=== PATIENT | male | born 1945 | race Caucasian/White ===

== ENCOUNTER → 2017-07-13 11:10 | Emergency (ER) | payer OTHER ==
[2017-07-13 11:36] VITALS: BP 152/93
--- NOTE | 2017-07-13 12:30 | RAD ---
HISTORY: Right knee pain, injury COMPARISONS: None VIEWS: 4, Frontal, lateral, axial, and oblique views of the right knee FINDINGS: BONE DENSITY: Normal. BONES: There is no displaced fracture. JOINTS: There is mild tricompartmental osteoarthritis. There is no suprapatellar joint effusion or lipohemarthrosis. ALIGNMENT: There is no dislocation. SOFT TISSUES: Unremarkable. OTHER FINDINGS: None. IMPRESSION: NO ACUTE OSSEOUS INJURY. IF SYMPTOMS PERSIST, RECOMMEND REPEAT IMAGING.
--- NOTE | 2017-07-13 17:42 | UC ---
Benton Luke Angela, scribed for Nahun Hart MD on 07/13/17 at 1154 . Lower Extremity/Ankle HPI - HPI Summary HPI Summary: This pt is a 71 y/o male presenting to [facility] c/o right knee pain since this morning. Pt reports he was walking his dog this morning when he felt his right knee give out and he fell on his knees. Since then pt reports right knee pain. He rates his pain 8 out of 10 in severity. Pt notes he is able to bear weight but is painful. - History of Current Complaint Chief Complaint: UCLowerExtremity Stated Complaint: KNEE INJURY Time Seen by Provider: 07/13/17 11:28 Hx Obtained From: Patient Onset/Duration: Lasting Hours, Still Present Severity Currently: Severe Pain Intensity: 8 Pain Scale Used: 0-10 Numeric Aggravating Factor(s): Ambulation Alleviating Factor(s): Rest Able to Bear Weight: Yes - Allergies/Home Medications Allergies/Adverse Reactions: Allergies Allergy/AdvReac Type Severity Reaction Status Date / Time No Known Allergies Allergy Verified 07/13/17 11:30 Home Medications: Home Medications Ibuprofen 400 mg PO Q8HR PRN 07/13/17 [History Confirmed 07/13/17] PMH/Surg Hx/FS Hx/Imm Hx - Additional Past Medical History Additional PMH: PMHx: glaucoma Other Endocrine History: DENIES: diabetes Other GI/ History: BPH - Surgical History Surgical History: None - Family History Known Family History: Positive: Other - FHx: arthritis Negative: Cardiac Disease, Hypertension - Social History Alcohol Use: Occasionally Alcohol Amount: 2 DRINKS/DAY Substance Use Type: None Smoking Status (MU): Never Smoked Tobacco Review of Systems Constitutional: Negative Skin: Negative Eyes: Negative ENT: Negative Respiratory: Negative Cardiovascular: Negative Gastrointestinal: Negative Genitourinary: Negative Motor: Negative Neurovascular: Negative Musculoskeletal: Other: - right knee pain Neurological: Negative Psychological: Negative All Other Systems Reviewed And Are Negative: Yes Physical Exam - Summary Physical Exam Summary: VITAL SIGNS: Reviewed. GENERAL: Patient is a well-developed and nourished male who is lying comfortable in the stretcher. Patient is not in any acute respiratory distress. HEAD AND FACE: Normocephalic EYES: PERRLA, EOMI x 2. EARS: Hearing grossly intact. MOUTH: Oropharynx within normal limits. NECK: Supple, trachea is midline, no adenopathy, no JVD, no carotid bruit. CHEST: Symmetric, no tenderness at palpation LUNGS: Clear to auscultation bilaterally. No wheezing or crackles. CVS: Regular rate and rhythm, S1 and S2 present, no murmurs or gallops appreciated. ABDOMEN: Soft, non-tender. Bowel sounds are normal. No abdominal abnormal pulsations. EXTREMITIES: Full ROM in all major joints, no cyanosis or clubbing. There is swelling on the right knee but there is full ROM. Neurovascular intact. NEURO: Alert and oriented x 3. No acute neurological deficits. Speech is normal and follows commands. SKIN: Dry and warm Triage Information Reviewed: Yes Vital Signs: Initial Vital Signs Temp 97.6 F 07/13/17 11:23 Pulse 65 07/13/17 11:23 Resp 18 07/13/17 11:23 BP 152/93 07/13/17 11:23 Pulse Ox 97 07/13/17 11:23 Vital Signs Reviewed: Yes Diagnostics - Radiology Right knee XR Xray Interpretation: No Acute Changes - IMPRESSION: No acute osseous injury. If symptoms persist, recommend repeat imaging. Dr. Hart has reviewed this radiology report. Radiology Interpretation Completed By: Radiologist Re-Evaluation - Re-Evaluation First Eval Re-Evaluation Time: 12:36 Comment: I reviewed the XR results with the pt. Pt will be discharged home. Lower Extremity Course/Dx - Course Course Of Treatment: This pt is a 71 y/o male presenting to [facility] c/o right knee pain since this morning. Pt reports he was walking his dog this morning when he felt his right knee give out and he fell on his knees. Since then pt reports right knee pain. He rates his pain 8 out of 10 in severity. Pt notes he is able to bear weight but is painful. Right knee XR is negative for an acute fracture or dislocation. Pt will be discharged home with a knee immobilizer and a cane. I discussed the XR results with the patient and was advised that he may benefit from a follow up from an orthopedist. Pt was instructed to return to the urgent care or go to ER immediately if any of the symptoms return or worsens. Plan of care was discussed with the patient and pt understands and agrees. All questions were answered to patient satisfaction. There were no further complaints or concerns. Pt will be discharged to home with follow up from PCP. Pt is hemodynamically stable, alert and oriented x3. The patient was found to have increased blood pressure in UC. The patient will follow up with PCP for better control of BP. - Differential Dx/Diagnosis Provider Diagnoses: Knee pain Discharge - Sign-Out/Discharge Documenting (check all that apply): Discharge - discharge to home - Discharge Plan Condition: Stable Disposition: HOME Patient Education Materials: Knee Pain (ED), Arthralgia (ED) Referrals: Shaunna Díaz MD [Primary Care Provider] - Additional Instructions: FOLLOW UP WITH YOUR PRIMARY CARE PROVIDER WITHIN ONE WEEK FOR HIGH BLOOD PRESSURE NOTED TODAY. RETURN TO URGENT CARE OR THE ED FOR ANY WORSENING OR NEW SYMPTOMS. The documentation as recorded by the Benton wilson Angela accurately reflects the service I personally performed and the decisions made by , Nahun Hart MD.
== END | disposition home or self-care (01) ==
LOC: UCEAST 11:10
DX: M25.561 Pain in right knee (principal)
CPT/HCPCS: 99213; G0463

== ENCOUNTER → 2017-07-23 13:09 | Day surgery (SDC) | payer OTHER ==
--- NOTE | 2017-07-21 15:59 | HP ---
HISTORY AND PHYSICAL: DATE OF SURGERY: 07/23/17 DATE OF OFFICE VISIT: 07/20/17 SURGEON: Allison Luna MD* (dictated by PETE Muller). PROCEDURE: Right open quad tendon repair. CHIEF COMPLAINT: Right knee pain. HISTORY OF PRESENT ILLNESS: Mr. Collier is a 71-year-old gentleman with complaints of right knee pain. He injured his knee on 07/13/17. He states he was walking his dog when he stepped over a tree and twisted his right leg. He heard himself the pop and was unable to weightbear fully on his right leg with severe pain in his right thigh. He is unable to do a straight leg raise. He has significant swelling of his right lower extremity and ecchymosis along his right thigh. PAST MEDICAL HISTORY: BPH. PAST SURGICAL HISTORY: Bowel surgery as an and tonsillectomy. CURRENT MEDICATIONS: 1. Ibuprofen. 2. Flomax. 3. Finasteride. 4. Latanoprost eye drops. ALLERGIES: AMOXICILLIN. FAMILY HISTORY: Prostate cancer. SOCIAL HISTORY: He is a 71-year-old gentleman, lives with his spouse. 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 He does not smoke or use drugs. He uses occasional alcohol. REVIEW OF SYSTEMS: A complete 14-point review of systems was reviewed with the patient. It was all negative or noncontributory. PHYSICAL EXAMINATION GENERAL: He is well developed, well nourished, in no acute distress. He is alert and oriented x3. Pleasant mood and appropriate affect. VITAL SIGNS: He stands 5 feet 8 inches tall, weighs 185 pounds. His blood pressure is 126/76, his heart rate 65. HEENT: Normocephalic, atraumatic. NECK: Supple. No palpable lymph nodes. PULMONARY: The lungs are clear to auscultation bilaterally. CARDIO: Regular rate and rhythm. Strong S1, S2. ABDOMEN: Soft, nontender, nondistended. NEUROLOGICAL: Cranial nerves II through XII are intact. MUSCULOSKELETAL: Right lower extremity, the skin is intact. There are no open wounds or abrasions. He has a large effusion of the knee joint. There is some pitting edema of the entire thigh down to the ankle, significant ecchymosis along the entire thigh. He is unable to do a straight leg raise. Distally, his strengths are 5/5. 2+ dorsalis pedis pulses and intact sensation. ASSESSMENT AND PLAN: Mr. Collier is a 71-year-old gentleman with a right quad tendon tear. He has elected to proceed with surgery and Dr. Luna has scheduled him for a right open quad tendon repair for 07/23/17. Dr. Luna discussed the risks and benefits of the surgery at today's visit and all of his questions were answered. He will follow up with Dr. Luna in 10 to 14 days after the surgery. PETE MULLER [id number]/[facility] #: [id number] ZEN
[~2017-07-23 13:09] MED LIST: Buffered Lidocaine 0.9% SYRIN* 5 ML/SYR SYRINGE INTRADERM ONE; Buffered Lidocaine 0.9% SYRIN* 5 ML/SYR SYRINGE ONE; Bupivacaine 0.5% PF 10 ML VIAL INJ ONE; Clindamycin 900 MG IVPREMIX(* 900 MG/50 ML SDV IV ONE; Dexamethasone IV* 4 MG/ML 1 ML (4 MG) IV SLOW PU ONE; Dexamethasone IV* 4 MG/ML 1 ML (4 MG) ONE; Famotidine TAB* 20 MG ONE; Famotidine TAB* 20 MG PO ONE; Ketorolac INJ* 30 MG/ML 1 ML VIAL IV PRN; Ketorolac INJ* 30 MG/ML 1 ML VIAL ONE; Lidocaine 2% PF * 5 ML VIAL ONE; Midazolam* 1 MG/ML 2 ML VIAL (2 MG) ONE; Naloxone* 0.4 MG/ML 1 ML VIAL IV PRN; Ondansetron INJ* 2 MG/ML VIAL ONE; PROCHLORPERAZINE INJ 5 MG/ML 2 ML VIAL IV PRN; Propofol* 10 MG/ML 20 ML BTL IV PUSH ONE; fentaNYL* 50 MCG/ML 2 ML VIAL (100 MCG VIAL) ONE; oxyCODONE/Acetamin 5/325 MG* TAB ONE; oxyCODONE/Acetamin 5/325 MG* TAB PO PRN
[2017-07-23] MEDS: fentaNYL* 50 MCG/ML 2 ML VIAL (100 MCG VIAL) IV PRN ×3 (17:22→17:50)
[2017-07-23 18:57] VITALS: BP 139/78
--- NOTE | 2017-07-24 11:17 | OP ---
OPERATIVE REPORT: DATE OF OPERATION: 07/23/17 - [facility] DATE OF : 49 SURGEON: Allison Luna MD SUPPLY AND DISTRIBUTION MANAGER: PETE Andres Ms. did help throughout the procedure with preparation of the leg, wound retraction, manipulation of the knee, and wound closure. ANESTHESIOLOGIST: Dr. Mijares. ANESTHESIA: General. PRE-OP DIAGNOSIS: Right quadriceps tendon tear distally. POST-OP DIAGNOSIS: Right quadriceps tendon tear distally, medial and lateral retinacular tearing. OPERATIVE PROCEDURE: Open right quadriceps tendon repair with retinacular repair. TOURNIQUET TIME: 32 minutes. ESTIMATED BLOOD LOSS: Less than 50 cc. COMPLICATIONS: None. SPECIMEN: None. BRIEF HISTORY/INDICATION: Mr. Collier is a 71-year-old gentleman who injured his right knee on 07/13/17. He was walking his dog when he was twisted and felt a pop in the right leg. He came to see me on 07/20/17 and I diagnosed him on physical exam with a quadriceps tendon tear. We ordered a stat MRI and set him up for surgery. We did discuss the risks and benefits of both nonoperative and operative treatment. He elected to proceed with operative treatment since he is so active and was having severe pain and weakness. Informed consent was obtained from the patient. He understood the risks of surgery included, but were not limited to bleeding, infection, damage to nearby structures, continued pain, need for further surgery, retear of the quad, extensor lag, stroke, heart attack, blood clot, and . He wished to proceed. INTRAOPERATIVE FINDINGS: Intraoperatively, the patient was noted to have a full thickness distal quadriceps tear. There was no obvious fracture of the patella. There was significant disruption of both the medial and lateral retinaculum around the knee joint. There was a significant hematoma and effusion of the knee joint. DESCRIPTION OF PROCEDURE: Mr. Collier was identified in the preanesthesia unit. His right lower extremity was marked as the correct operative side. Informed consent was signed and placed in the chart. The patient was taken to the operating room and placed under general anesthesia. A tourniquet was placed on the right thigh. The right lower extremity was prepped and draped in the usual sterile fashion. Preop time-out was made to correctly identify the patient, side and site. Appropriate perioperative antibiotics were given within 1 hour of incision. Tourniquet was inflated and total tourniquet time for this procedure was 32 minutes. A midline incision was made with a 10 blade and carried down to the extensor mechanism. Immediately encountered was a large hematoma effusion. This was suctioned out. The quadriceps tendon tear and retinacular tears both medially and laterally were immediately visualized. The knee was irrigated with sterile saline. The ends of the tendon were cleaned of any debris and hematoma. The proximal patellar surface was cleared off any fibrous tissue with a Rongeur. Three #5 Ethibond were run in a longitudinal fashion up and down the quadriceps tendon using a lula stitch technique. The free ends were left distally. Next, a 2.8 drill bit was used to drill 3 tunnels longitudinally in the patella. This was placed in the mid portion of the patella. Perez suture- passer was used to thread the sutures through the tunnel distally. Using the appropriate amount of tension, the sutures were tied carefully. It was noted that this repair was strong. The knee could be bent to 40 degrees without any gapping. Additional #5 Ethibond was used to reinforce this repair as well as to repair the medial and lateral retinaculum. #1 Vicryl were used to further enhance this repair. The knee was copiously irrigated with sterile saline. The rest of the incision was closed in a layered fashion using 0 and 2-0 Vicryl. Tourniquet was turned down at 32 minutes. Skin was closed using running 3-0 Monocryl and Dermabond. Sterile Adaptic, 4x4s and Webril were used to cover the incision. Dann wrap and cold pack were placed over this. The patient's anesthesia was reversed without difficulty. He was taken to the PACU in stable condition. Intended weightbearing will be weightbearing as tolerated. Intended DVT prophylaxis will be aspirin. He will follow up in the office in 1 week's time for a wound check. [id number]/[facility] #: [id number] ZEN
--- NOTE | 2017-07-24 12:45 | RAD ---
INDICATION: Quadriceps tendon repair right knee. COMPARISON: Comparison is made with a prior MRI of the right knee from July 21, 2017. TECHNIQUE: 4.3 seconds of intermittent fluoroscopic guidance were provided and 2 spot films of the right knee were obtained in the operating room. FINDINGS: 2 portable lateral spot films of the right knee were obtained in the operating room. IMPRESSION: INTRAOPERATIVE CONTROL FILMS. CPT II Codes: G9500
== END | disposition home or self-care (01) ==
LOC: OR 13:09
PROVIDERS: ATTEND Orthopaedic Surgery Adult Reconstructive Orthopaedic Surgery
DX: S76.111A Strain of right quadriceps muscle, fascia and tendon, initial encounter (principal); X50.0XXA Overexertion from strenuous movement or load, initial encounter; Y93.89 Activity, other specified; Y92.89 Other specified places as the place of occurrence of the external cause
CPT/HCPCS: 76000; A9270-GY; J1100; J1885; J2250; J2405; J2704; J3010

== ENCOUNTER 2017-11-09 10:29 | Emergency (ER) | payer OTHER ==
[2017-11-09 10:39] VITALS: BP 137/86
[2017-11-09] MEDS ORDERED: Lidocaine 1% MPF* 2 ML VIAL INJ ONE (10:53)
[2017-11-09] MEDS ORDERED: Tetan/Diph/Pertus SYR(Tdap)* 0.5 ML SYR(BOOSTRIX) use SYR IM ONE (10:53)
--- NOTE | 2017-11-09 10:54 | UC ---
Bite Injury/Animal HPI - HPI Summary HPI Summary: This is scribe Ely Pina documenting for attending Dr. Herbert MD. 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 This morning, the patients was walking their Beagle, and a stick got caught in its collar, and the pt was tried to remove the stick, agitating the dog, who then bit him multiple times. The patient is unsure when his last tetanus shot was, allergic to penicillin. Pt is R-handed. The dogs shots are UTD, and is at home with the doors closed. They have had trouble with the dog before, but he has never bitten anyone outside of the family. I, Dr. Godinez, personally performed the services described in this documentation as scribed in my presence and it is both accurate and complete. - History of Current Complaint Chief Complaint: UCBiteInjury Stated Complaint: DOG BITE Time Seen by Provider: 11/09/17 10:42 Hx Obtained From: Patient Severity Currently: Moderate Severity Initially: Moderate Pain Intensity: 5 Pain Scale Used: 0-10 Numeric Onset/Duration: Sudden Onset, Lasting Hours - since this morning, Still Present Type of Bite: Pet - dog - beagle Has Animal Been Immunized?: Yes Character: Puncture, Abrasion/Laceration Aggravating Factor(s): Exertion Alleviating Factor(s): Rest Associated Signs And Symptoms: Positive: Erythema, Swelling, Limited ROM Animal Available for Observation: Yes Animal Control Notified: No - Allergies/Home Medications Allergies/Adverse Reactions: Allergies Allergy/AdvReac Type Severity Reaction Status Date / Time Penicillins Allergy Hives Verified 11/09/17 10:39 PMH/Surg Hx/FS Hx/Imm Hx Previously Healthy: No Endocrine History: Diabetes - negative Cardiovascular History: Hypertension - Surgical History Surgical History: Yes Surgery Procedure, Year, and Place: TONSILLECTOMY. DIVERTICULITIS AN torn tendon surgery in 07/15 - Family History Known Family History: Positive: Other - FHx: arthritis Negative: Cardiac Disease, Hypertension - Social History Occupation: Employed Full-time Lives: With Family Alcohol Use: Daily Alcohol Amount: 2 DRINKS/DAY Substance Use Type: None Smoking Status (MU): Never Smoked Tobacco Review of Systems Constitutional: Negative - fever Skin: Bruising, Other - lacerations all over R and L hands and forearms, active bleeding All Other Systems Reviewed And Are Negative: Yes Physical Exam - Summary Physical Exam Summary: Appearance: Well appearing, no pain distress Skin: 2cm skin tear to mid-dorsum of L hand. Small puncture near dorsal web space of L 4th and 5th fingers, bleeding is controlled. J-shaped laceration to thenar eminence to the R hand that is 5 cm in length. There is a puncture wound with skin tear at the proximal nail fold of R thumb and 1 cm puncture wound laceration to the R dorsal radial wrist. Several puncture wounds on the left forearm (3), skin tear that is 1.5cm in length on L forearm. R forearm has 6 puncture wounds. Head/face: normal Eyes: EOMI, ISIAH ENT: normal Neck: supple, non-tender Respiratory: CTA, breath sounds present Cardiovascular: RRR, pulses symmetrical Abdomen: non-tender, soft Bowel Sounds: present Musculoskeletal: normal, strength/ROM intact Neuro: normal, sensory motor intact, A&Ox3 Triage Information Reviewed: Yes Vital Signs: Initial Vital Signs Temp 98 F 11/09/17 10:37 Pulse 96 11/09/17 10:37 Resp 16 11/09/17 10:37 BP 137/86 11/09/17 10:37 Pulse Ox 100 11/09/17 10:37 Vital Signs Reviewed: Yes Procedures - Procedure Summary Procedure Summary: L forearm punctures irrigated and dressed with 0 form and gauze, puncture on R thumb dressed with 0 steriform, subungual hematoma trephinated with electrocautery, dressed the nail fold laceration with two steri-strips. L forearm puncture wounds dressed with 0 form and gauze. 2.5 cc 1% lidocaine into L hand, 2.5 cc 1% lidocaine into L forearm, 7 cc 1% lidocaine into R hand. Each wound was cleaned with betadine. L forearm cleaned with betadine, 2.5cm after repair, two simple interrupted sutures, 4-0 prolene. 2cm skin tear on L dorsal hand cleaned with betadine and repaired with two simple interrupted sutures, 4-0 prolene. J-shaped laceration on R palm cleaned with betadine and repaired with two simple interrupted 4-0 vicryl sutures, subcutaneously, as well as two simple interrupted 4-0 prolene, and four horizontal mattress 4-0 prolene. Sterile technique used. - Laceration/Wound Repair 1 Location: upper extremity - L forearm Length, Depth and Shape: Puncture, superficial Betadine Prep?: Yes Laceration/Wound Explored: clean Closure: SteriStrips Debridement: minimal Sterile Dressing Applied?: Yes 2 Location: upper extremity - R thumb puncture Length, Depth and Shape: Puncture, superficial, and subungual hematoma, see summary for details on dressing. Betadine Prep?: Yes Closure: SteriStrips Debridement: minimal Sterile Dressing Applied?: Yes 3 Location: upper extremity - L forearm Description: Linear Anesthesia: 1.0% - 2.5cc, Lido Length, Depth and Shape: 2.5cm after repair Betadine Prep?: Yes Laceration/Wound Explored: clean Closure: Single Layer - simple interrupted sutures Debridement: minimal Suture Type: Prolene - 4-0 Number of Sutures: 2 Layer Closure?: Yes Sterile Dressing Applied?: Yes 5 Location: upper extremity - R palm Anesthesia: 1.0% - 7cc, Lido Length, Depth and Shape: 5cm J-shaped skin tear Betadine Prep?: Yes Laceration/Wound Explored: clean Closure: Multilayer - two simple interrupted 4-0 vicryl subcutaneous sutures, two simple interrupted 4-0 prolene sutures, four horizontal mattress 4-0 prolene sutures. Debridement: minimal Suture Type: Prolene - 4-0 Number of Sutures: 8 Layer Closure?: Yes Sterile Dressing Applied?: Yes 4 Location: upper extremity - L dorsal hand Anesthesia: 1.0% - 2.5 cc, Lido Length, Depth and Shape: 2cm skin tear Betadine Prep?: Yes Laceration/Wound Explored: clean Closure: Single Layer - simple interrupted Debridement: minimal Suture Type: Prolene - 4-0 Number of Sutures: 2 Layer Closure?: Yes Sterile Dressing Applied?: Yes Bite Injury Course/Dx - Course Course Of Treatment: Patient presents with multiple wounds to both forearms and hands after being bitten by his own dog. Dog is up-to-date on vaccines. Patient is penicillin allergic and so he was prophylactically with Levaquin, clindamycin per CDC recommendation. Multiple puncture wounds were irrigated with saline copiously. The lacerations were also some [place] cleaned. I then cleaned each of the lacerations with Betadine prior to irrigating once more prior to closure. The wounds were then closed loosely, dressed with Xeroform and Kerlix wrap and secured with Coban. I have asked the patient to return to see me in 2 days at [facility] or return here for wound check. He was also a subungual hematoma which was trephinated by battery-powered electrocautery. Patient was updated in his tetanus. Sutures should be taken out in 10 days, follow up with primary care provider or go to local urgent care for removal. BP noted and advised to follow up with PCP. - Differential Dx/Diagnosis Provider Diagnoses: 1. Multiple dog bites to bilateral hands/forearms. 2. HTN. 3. Subungual hematoma right thumb Discharge - Sign-Out/Discharge Documenting (check all that apply): Patient Departure - Discharge Plan Condition: Improved Disposition: HOME Prescriptions: Clindamycin Cap(NF) [Clindamycin Cap 300 mg Cap(NF)] 300 mg PO TID #20 cap Levofloxacin TAB* [Levaquin TAB*] 750 mg PO DAILY #6 tab Patient Education Materials: Animal Bite (ED), Care For Your Stitches (ED), Laceration (ED), Acute Wound Care (ED) Referrals: Shaunna Díaz MD [Primary Care Provider] - Additional Instructions: Please follow up with your primary care provider or at [facility] in two days for a wound re-check. Sutures to be removed in approximately 10 days' time. Your blood pressure was elevated during todays visit; please follow up with your primary care provider within a week for further evaluation. Take a probiotic such as lactobacillus or Eat activitia yogurt while taking antibiotics. - Billing Disposition and Condition Condition: IMPROVED Disposition: Home
[2017-11-09] MEDS ORDERED: Levofloxacin TAB* 250 MG PO ONE (10:56)
[2017-11-09] MEDS ORDERED: Clindamycin CAP* 150 MG PO ONE (10:56)
[2017-11-09] MEDS ORDERED: Lidocaine 1%* 5 ML VIAL ONE (11:23)
== END 2017-11-09 12:32 | disposition home or self-care (01) ==
LOC: UCEAST 10:29
DX: S51.832A Puncture wound without foreign body of left forearm, initial encounter (principal); S61.031A Puncture wound without foreign body of right thumb without damage to nail, initial encounter; S51.822A Laceration with foreign body of left forearm, initial encounter; S61.411A Laceration without foreign body of right hand, initial encounter; S61.412A Laceration without foreign body of left hand, initial encounter; S60.011A Contusion of right thumb without damage to nail, initial encounter; W54.0XXA Bitten by dog, initial encounter; Y93.K1 Activity, walking an animal; Y92.9 Unspecified place or not applicable; Z23 Encounter for immunization; I10 Essential (primary) hypertension; Z88.0 Allergy status to penicillin
CPT/HCPCS: 12002; 12042; 90715; 96372; 99212; A9270-GY; G0463

== ENCOUNTER 2018-09-03 18:43 | Observation (INO) | payer OTHER ==
--- NOTE | 2018-09-03 20:08 | ED ---
Lower Extremity - HPI Summary HPI Summary: Patient is a 72 y/o male with hx of BPH and glaucoma with right leg swelling x 1 week. Denies calf pain, redness, numbness and tingling. Denies recent travel, recent immobilization, personal and family history of DVT and PE. He is not currently on blood thinners. States he saw his doctor this morning and had a positive D-dimer test, who sent him here for DVT U/S and further workup. He also notes a tick bite about 1 week ago to the right proximal calf. He removed the tick within 24 hours and received prophylactic doxycycline dose. Denies fevers, arthralgias, headache, flu-like symptoms, rashes. Denies tobacco use. - History of Current Complaint Chief Complaint: EDExtremityLower Stated Complaint: RT LEG SWOLLEN PER PT Time Seen by Provider: 09/03/18 20:00 Hx Obtained From: Patient Onset/Duration: Days Severity Initially: Mild Severity Currently: Moderate Pain Intensity: 2 Pain Scale Used: 0-10 Numeric Timing: Intermittent Character Of Pain: Aching Associated Signs And Symptoms: Positive: Swelling. Negative: Redness, Bruising , Fever, Weakness, Abdominal Pain Aggravating Factor(s): Nothing Alleviating Factor(s): Nothing Able to Bear Weight: Yes - Risk Factors Gout Risk Factors: Age Over 40, Male, Obesity DVT Risk Factors: Negative Septic Arthritis Risk Factor: Negative - Allergies/Home Medications Allergies/Adverse Reactions: Allergies Allergy/AdvReac Type Severity Reaction Status Date / Time Penicillins Allergy Hives Verified 09/03/18 18:54 PMH/Surg Hx/FS Hx/Imm Hx Previously Healthy: No Endocrine/Hematology History: Denies: Hx Diabetes Cardiovascular History: Reports: Other Cardiovascular Problems/Disorders - slight irregularity in heart beat, pt not sure Denies: Hx Hypertension, Hx Pacemaker/ICD Respiratory History: Reports: Hx Sleep Apnea - states he has breathing irregulalrities while sleeping, soft then hard Denies: Other Respiratory Problems/Disorders GI History: Reports: Hx Ulcer - duodenal ulcer while in college, Other GI Disorders - heart burn on occasion History: Reports: Other Problems/Disorders - Enlarged prostate, on medications Denies: Hx Kidney Stones - uric acid crystals in his bladder, Hx Renal Disease Musculoskeletal History: Reports: Hx Arthritis - Right knee, Other Musculoskeletal History - Right knee pain effusion, right quadriceps Sensory History: Reports: Hx Contacts or Glasses - Glasses, Hx Glaucoma - pre glaucoma primarily in right eye, eye drops at night Denies: Hx Hearing Aid Opthamlomology History: Reports: Hx Contacts or Glasses - Glasses, Hx Glaucoma - pre glaucoma primarily in right eye, eye drops at night Neurological History: Denies: Other Neuro Impairments/Disorders Psychiatric History: Denies: Hx Panic Disorder - Surgical History Surgical History: Yes Surgery Procedure, Year, and Place: TONSILLECTOMY. DIVERTICULITIS AN INFANT torn tendon surgery in 07/15 Hx Anesthesia Reactions: No Infectious Disease History: Yes Infectious Disease History: Reports: History Other Infectious Disease - Lyme disease. Denies: Traveled Outside the [place] in Last 30 Days - Family History Known Family History: Positive: Other - FHx: arthritis Negative: Cardiac Disease, Hypertension, Blood Disorder - Social History Alcohol Use: Daily Alcohol Amount: 2 DRINKS/DAY Substance Use Type: Reports: None Smoking Status (MU): Never Smoked Tobacco Review of Systems Negative: Fever, Chills Negative: Chest Pain Negative: Shortness Of Breath, Cough Negative: Abdominal Pain, Nausea Positive: no symptoms reported Positive: Edema - Right lower leg. Negative: Rash Negative: Headache, Numbness All Other Systems Reviewed And Are Negative: Yes Physical Exam Triage Information Reviewed: Yes Vital Signs On Initial Exam: Initial Vitals Temp Pulse Resp BP Pulse Ox 99.0 F 79 16 122/80 95 09/03/18 18:51 09/03/18 18:51 09/03/18 18:51 09/03/18 18:51 09/03/18 18:51 Vital Signs Reviewed: Yes Appearance: Positive: Well-Appearing, No Pain Distress Skin: Positive: Warm, Skin Color Reflects Adequate Perfusion, Dry Head/Face: Positive: Normal Head/Face Inspection Eyes: Positive: Normal, EOMI, Conjunctiva Clear ENT: Positive: Normal ENT inspection Respiratory/Lung Sounds: Positive: Clear to Auscultation, Breath Sounds Present. Negative: Rales, Rhonchi, Wheezes Cardiovascular: Positive: RRR, Pulses are Symmetrical in both Upper and Lower Extremities. Negative: Murmur, Rub Abdomen Description: Positive: Nontender, Soft. Negative: Distended Musculoskeletal: Positive: Strength/ROM Intact, Edema Right - Right leg non- pitting edema and warmth. No erythema. Scabbed area consistent with previous tick bite to proximal calf. No calf tenderness. No palpable cords. Neurological: Positive: Normal, Sensory/Motor Intact, Alert, Oriented to Person Place, Time Psychiatric: Positive: Normal Diagnostics - Vital Signs Vital Signs Temp Pulse Resp BP Pulse Ox 09/03/18 20:00 74 19 96 09/03/18 19:55 76 134/80 97 09/03/18 18:51 99.0 F 79 16 122/80 95 - Laboratory Result Diagrams: 09/03/18 21:28 09/03/18 21:28 Lab Statement: Any lab studies that have been ordered have been reviewed, and results considered in the medical decision making process. - CT Chest CTA CT Interpretation Completed By: Radiologist Summary of CT Findings: Bilateral pulmonary embolism, greater on right than left - Ultrasound Right ext DVT Ultrasound Interpretation Completed By: Radiologist Summary of Ultrasound Findings: Positive for right leg DVT. Partial occlusion of right common femoral vein, full occlusion of right femoral and popliteal veins. - EKG 2108 Cardiac Rate: NL - 72 EKG Rhythm: Sinus Rhythm ST Segment: Normal Ectopy: None Re-Evaluation - Re-Evaluation First Re-eval Change: Unchanged Comment: Rhythm strip shows PVCs, CTA ordered Lower Extremity Course/Dx - Course Course Of Treatment: 72 y/o male with 1 week right lower leg swelling, positive D-dimer earlier today sent to ED by AGRONOMIST for DVT U/S of right leg. U/S shows occluded left femoral vein with clot partially occluding common femoral. During pt's stay, patient developed PVCs. Lovenox started. CTA shows bilateral pulmonary embolism. Discussed admission with Dr. Babcock, hospitalist, who accepts admission. Assessment/Plan: Patient with heavy clot burden and so a CT of the chest was done despite his normal vital signs. I did notice some PVCs which help trigger the workup. CT of course was positive for PE and he had arty been anticoagulated with therapeutic Lovenox. Admit to hospitalist service. - Diagnoses Differential Diagnosis/HQI/PQRI: Positive: Cellulitis, DVT, Phlebitis, Other - pulmonary embolism Provider Diagnoses: Right leg DVT, Pulmonary embolism - Physician Notifications Discussed Care Of Patient With: domingo Paul Time Discussed With Above Provider: 20:15 Instructed by Provider To: Admit As Inpatient Admit/Transition Orders Completed By ED Provider: No - Critical Care Time Critical Care Time: 30-74 min - Critical care time is exclusive of separately billable procedures Discharge - Sign-Out/Discharge Documenting (check all that apply): Patient Departure Patient Received Moderate/Deep Sedation with Procedure: No - Discharge Plan Condition: Improved Disposition: ADMITTED TO [facility] - Billing Disposition and Condition Condition: IMPROVED Disposition: Admitted to [facility] - Attestation Statements Document Initiated by Scribe: Yes Documenting Scribe: JACKELINE Daniels Provider For Whom Yoni is Documenting (Include Credential): Dr. Godinez Scribe Attestation: Janet Luke PA-S, scribed for Dr. Godinez on 09/04/18 at 0113. Scribe Documentation Reviewed: Yes Provider Attestation: The documentation as recorded by the Janet wilson PA-S accurately reflects the service I personally performed and the decisions made by Dr. Herbert santiago Status of Scribe Document: Viewed
[2018-09-03] MEDS ORDERED: Enoxaparin(*) 80 MG/0.8 ML SYR SUBCUT ONE (21:05)
[2018-09-03 21:34] LABS: ABS Basophils 0.1 10^3/ul (0-0.2); ABS Eosinophils 0.3 10^3/ul (0-0.6); ABS Lymphocytes 2.5 10^3/ul (1.0-4.8); ABS Monocytes 0.8 10^3/ul (0-0.8); ABS Neutrophils 4.4 10^3/ul (1.5-7.7); Hematocrit 43 % (42-52); Hemoglobin 14.5 g/dL (14.0-18.0); Lymphocyte % 30.8 %; Mean Corpuscular HGB Conc 34 g/dL (31-36); Mean Corpuscular Hemoglobin 31 pg (27-31); Mean Corpuscular Volume 93 fL (80-94); Mean Platelet Volume 8.9 fL (7.4-10.4); Platelet Count 197 10^3/uL (150-450); Red Blood Count 4.61 10^6 /uL (4.18-5.48); Red Cell Distribution Width 13 % (10-15); White Blood Count 8.1 10^3/uL (3.5-10.8)
[2018-09-03 21:43] LABS: Activated Partial Thrombo Time 35.4 seconds (26.0-38.0); INR 1.05 (0.82-1.09)
[2018-09-03 21:50] LABS: BUN/Creatinine Ratio 20.9 (8-20); Calcium 9.2 mg/dL (8.6-10.3); EGFR African American 99.7 (>60); EGFR Non-African American 82.4 (>60); Potassium 4.7 mmol/L (3.5-5.0)
[2018-09-03] MEDS ORDERED: Iohexol 350* (CONTRAST) 500 ML MDV IV ONE (21:57)
[2018-09-04] MEDS ORDERED: Acetaminophen TAB* 325 MG PO PRN (00:01)
[2018-09-04] MEDS ORDERED: Ondansetron INJ* 2 MG/ML VIAL IV PRN (00:01)
--- NOTE | 2018-09-04 01:57 | HP ---
ADMISSION HISTORY AND PHYSICAL: DATE OF ADMISSION: 09/04/18 PRIMARY CARE PROVIDER: Shaunna Díaz MD HEALTHCARE PROXY: His . CODE STATUS: Full. SOURCE OF INFORMATION: History obtained from interview with the patient, review of past medical records. RELIABILITY: Good. CHIEF COMPLAINT: Swollen right leg. HISTORY OF PRESENT ILLNESS: A 72-year-old man who approximately 1 week prior obtained a tick bite to his right leg. He noticed that his leg began to swell on Thursday, approximately 6 days prior to presentation. It did not increase in size, but stayed approximately the same size, was not associated with pain. Although he does have chronic pain in that leg, there was no change in that level of chronic pain, and because of the increased swelling without change, he was advised to seek care in the emergency room where he had a Doppler that indicated a DVT in his right leg. Of note, the patient had a surgery in June 2017 on his right leg for quadriceps tendon repair and has since had some limited mobility utilizing his right leg. He ambulates using a cane on that side when ambulating outside, however, does ambulate independently when inside. He has denied any shortness of breath or cough, chest pain, lightheadedness, nausea, vomiting. He denies any recent travel or trauma to that leg. Again, he indicates a tick bite a week prior, although unknown significance at this time. Not having notable erythema or inflammation secondary to that insect bite. PAST MEDICAL HISTORY: Includes: 1. YODIT, does utilize CPAP. 2. BPH. 3. History of quadriceps tendon repair in June 2017. 4. Tonsillectomy as a child. 5. Bowel surgery as a child, which he believes was for diverticulitis, but it is unclear. MEDICATIONS: Home medications include: 1. Finasteride. 2. Tamsulosin. 3. Xalatan 1 drop both eyes in the evening. ALLERGIES: To PENICILLINS. FAMILY HISTORY: For prostate cancer. No history of blood clots or venous thromboembolism. SOCIAL HISTORY: 1. No tobacco. 2. Alcohol, has 2 alcoholic drinks per night. 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 REVIEW OF SYSTEMS: As per HPI. PHYSICAL EXAMINATION GENERAL: Well-appearing gentleman, lying flat in bed, interactive, pleasant, no apparent distress. VITAL SIGNS: In the emergency room 133/70, heart rate 75, respiratory rate is between 14 and 29, 95% on room air, T-max is 99 degrees Fahrenheit. HEENT: Oropharynx is clear. He has moist mucous membranes. Sclerae are anicteric. LUNGS: Clear to auscultation. HEART: He has regular rate and rhythm. No murmurs, rubs, or gallops. ABDOMEN: Soft, nontender, nondistended. EXTREMITIES: Warm and well perfused. He does have some swelling in his proximal right leg around his quadriceps. No notable erythema or inflammation. Did not appreciate pitting edema. NEUROLOGIC: He is alert and oriented x3. His cranial nerves II through XII are intact. He has no apparent anxiety, agitation, or depression. DIAGNOSTIC STUDIES/LAB DATA: Labs reviewed are largely benign. Platelets 197. INR is 1.0. BUN is 19, creatinine 0.9. Data reviewed. Venous Doppler study, impression: Nonocclusive thrombus noted in the right common femoral vein, which is noncompressible, but does demonstrate phasic blood flow. Occlusive thrombus is present in the right femoral and popliteal veins extending into the right tibial vein until the posterior tibial vein. CTA chest and thorax, impression: Central filling defect in the right pulmonary artery extending into the right upper and right lower lobe branches of the pulmonary artery and also the central filling defect in the lingula or segmental branch of the left upper lobe pulmonary artery and subsegmental branches of the left lower lobe pulmonary artery consistent with acute bilateral pulmonary embolism, which is greater on the right than on the left, no visible embolism. EKG is normal sinus rhythm, left axis, normal R wave progression, no Q waves, no ST or T wave changes. ASSESSMENT AND PLAN: This is a 72-year-old man presenting with right upper leg swelling, found with notable clot burden and bilateral pulmonary emboli. 1. Venous thromboembolism - right lower extremity as well as pulmonary embolism. While in the emergency room, did have PVCs on telemetry, concerning in the setting of newly diagnosed pulmonary embolism. Discussed with emergency room provider, we agreed to observe as observation in the hospital overnight. We will monitor on telemetry. He received enoxaparin in the emergency room. We will initiate Xarelto tomorrow b.i.d. at the time of next Lovenox dosing which is 9 a.m. Chose this medication in order to transition to once daily dosing after 21 days, although he is free to transition to any other medication at his followup with his primary care provider. We did discuss options and he does favor NOAC over Coumadin at this time. Additionally, we will deliver lactated Ringer's at 100 cc per hour overnight. 2. Obstructive sleep apnea. Hospital CPAP. 3. Benign prostatic hypertrophy. Home medications. 4. DVT prophylaxis. Lovenox tonight, transitioning to rivaroxaban tomorrow morning. [id number]/[facility] #: [id number] ZEN
[2018-09-04] MEDS: Lactated Ringers 1000 ML Bag* 1,000 ML IV SCH ×2 (02:14→11:37)
[2018-09-04] MEDS ORDERED: Rivaroxaban TAB(*) 15 MG PO SCH (09:00)
[2018-09-04] MEDS ORDERED: Finasteride TAB* 5 MG PO SCH (09:00)
[2018-09-04 11:22] VITALS: BP 144/86
--- NOTE | 2018-09-04 16:41 | DS ---
CC: Dr. Shaunna Díaz DISCHARGE SUMMARY: DATE OF ADMISSION: DATE OF DISCHARGE: 09/04/18 HISTORY OF PRESENT ILLNESS/HOSPITAL COURSE: This 72-year-old man presented with swelling of the righ t leg. The history is detailed in the admission note. I note he removed a tick from his right leg a bout a week before. He has many ticks in his yard. I think this is really not relevant to his clini mukesh situation and there was no evidence of any disease transmission related to the tick bite. The si te itself was not abnormal. The patient had a Doppler in the emergency room showing DVT in the right leg. CT scan showed right p ulmonary emboli. He was started on heparin and then transitioned to rivaroxaban. He did quite well in the hospital. He was able to ambulate normally. He was not short of breath. He had no chest katharina n. He had no leg pain. He still had swelling of his right leg, possibly subsided a little. I note that he had quadriceps tendon repair of his right leg in June 2017 and has limited mobility. He does say he tends to sit a lot. There were no other precipitating factors such as a long trip or other acute injury. FINAL DIAGNOSES: 1. Pulmonary embolism and deep vein thrombosis of right leg. 2. Obstructive sleep apnea. 3. Benign prostatic hypertrophy. DISCHARGE MEDICATIONS: 1. Rivaroxaban 15 mg b.i.d. for 41 doses more, then 20 mg daily. 2. Tamsulosin 0.4 mg daily. 3. Latanoprost 0.005% one drop both eyes h.s. 4. Finasteride 5 mg every morning. DISPOSITION ON DISCHARGE: Discharged home. CONDITION ON DISCHARGE: Improved. [id number]/[facility] #: [id number]
[2018-09-04] MEDS ORDERED: Tamsulosin CAP* 0.4 MG PO SCH (18:00)
[2018-09-04] MEDS ORDERED: Latanoprost 0.005%* 2.5 ml BTL BOTH EYES SCH (18:00)
== END 2018-09-04 16:28 | disposition home or self-care (01) ==
LOC: ED 18:43 → MEDTELE 09-04 00:01
PROVIDERS: ADMIT Internal Medicine; ATTEND Internal Medicine
DX: I26.99 Other pulmonary embolism without acute cor pulmonale (principal); I82.4Z1 Acute embolism and thrombosis of unspecified deep veins of right distal lower extremity; G47.33 Obstructive sleep apnea (adult) (pediatric); N40.0 Benign prostatic hyperplasia without lower urinary tract symptoms; Z88.0 Allergy status to penicillin
CPT/HCPCS: 36415; 71275; 80048; 85025; 85610; 85730; 93005; 96372; 96374; 96376; 99285; A9270-GY; G0378; J1650; Q9967

== ENCOUNTER 2018-11-13 16:04 | Emergency (ER) | payer OTHER ==
[2018-11-13 16:20] VITALS: BP 114/76
--- NOTE | 2018-11-13 16:35 | UC ---
Skin Complaint HPI - HPI Summary HPI Summary: Multiple bites at approximately 2 pm today when he was push mowing his lawn and disrupted a wasp nest, with multiple stings to both lower and upper extremities , and on the anterior neck. Took chlorpheneramine, but has increased swelling of the right lower leg, and progressive urticaria over the trunk and proximal arms. No oral swelling, cough, dyspnea or chest pain. - History of Current Complaint Chief Complaint: UCSkin Time Seen by Provider: 11/13/18 16:24 Stated Complaint: BEE STINGS Hx Obtained From: Patient, Family/Building Attendant Onset/Duration: Sudden Onset, Lasting Hours Skin Exposure Onset/Duration: Hours Ago - 2.5 Onset Severity: Moderate Current Severity: Moderate Pain Intensity: 3 Location: Diffuse Aggravating Factor(s): Touch Alleviating Factor(s): Antihistamines Associated Signs & Symptoms: Negative: Nausea, Vomiting, Weakness, Cough, Wheezing Related History: Insect Bite/Sting - Allergy/Home Medications Allergies/Adverse Reactions: Allergies Allergy/AdvReac Type Severity Reaction Status Date / Time Penicillins Allergy Hives Verified 11/13/18 16:20 Home Medications: Home Medications Acetaminophen [Tylenol] 1 tab PO ONCE PRN 11/13/18 [History Confirmed 11/13/18] Calcium Carbonate [Tums] 11/13/18 [History] Chlorpheniramine Maleate TAB* [Chlortrimeton TAB*] 4 mg PO ONCE PRN 11/13/18 [ History Confirmed 11/13/18] Cholecalciferol TAB* [Vitamin D TAB*] 1,000 unit PO DAILY 11/13/18 [History Confirmed 11/13/18] Ibuprofen TAB* [Advil TAB*] 2 tab PO ONCE PRN 11/13/18 [History Confirmed ] PMH/Surg Hx/FS Hx/Imm Hx Cardiovascular History: Deep Vein Thrombosis - developed August 2018 GI/ History: Other - BPH - Surgical History Surgical History: Yes Surgery Procedure, Year, and Place: TONSILLECTOMY. DIVERTICULITIS AN . right leg torn tendon surgery june 2017 - Family History Known Family History: Positive: Other - FHx: arthritis Negative: Cardiac Disease, Hypertension, Blood Disorder - Social History Occupation: Retired Lives: With Family Alcohol Use: Daily Alcohol Amount: 2 DRINKS/DAY Substance Use Type: None Smoking Status (MU): Never Smoked Tobacco Review of Systems All Other Systems Reviewed And Are Negative: Yes Constitutional: Positive: Negative. Negative: Fatigue Skin: Positive: Rash, Other - has rx for doxycycline at home which he uses as Lyme prphylaxis. ENT: Negative: Sore Throat, Sinus Congestion Respiratory: Negative: Shortness Of Breath, Cough Cardiovascular: Negative: Palpitations, Chest Pain Gastrointestinal: Positive: Other - took an antacid for mild reflux symptoms earlier today Genitourinary: Positive: Other - BPH controlled. Motor: Positive: Other - DVT right leg, with persistent swelling post DVT. Neurovascular: Positive: Negative Musculoskeletal: Positive: Arthralgia - has persistent Neurological: Positive: Negative Psychological: Positive: Negative Is Patient Immunocompromised?: No Physical Exam Triage Information Reviewed: Yes Appearance: Well-Nourished, Pain Distress - mild, Other: - looks frail and older than age. Vital Signs: Initial Vital Signs Temp 97.8 F 11/13/18 16:16 Pulse 84 11/13/18 16:16 Resp 16 11/13/18 16:16 BP 114/76 11/13/18 16:16 Pulse Ox 98 11/13/18 16:16 Eyes: Positive: Other: - left ectropion ENT: Positive: Pharynx normal, Uvula midline - without swelling, no tongue swelling. Neck: Positive: Supple, Nontender, No Lymphadenopathy Respiratory: Positive: Lungs clear, Normal breath sounds Cardiovascular: Positive: RRR, No Murmur Abdomen Description: Positive: Nontender, Soft Musculoskeletal: Positive: Edema @ - right foreleg with tense edema, leg is warm and red, but not tender to palpation Skin Exam: Other - urticaria over trunk, proximal forearm, numerous bites on hands with erythema of the dorsum of the hands. Re-Evaluation - Re-Evaluation First Eval Re-Evaluation Time: 17:15 - decreased erythema, urticaria persist Change: Improved Course/Dx - Course Course Of Treatment: Given IM benadryl and solumedrol as initial treatment. - Differential Diagnoses - Skin Complaint Differential Diagnoses: Local Allergic Reaction - Diagnoses Provider Diagnosis: Allergic reaction to bee sting Discharge - Sign-Out/Discharge Documenting (check all that apply): Patient Departure All imaging exams completed and their final reports reviewed: No Studies - Discharge Plan Condition: Stable Disposition: HOME Prescriptions: DOXYcycline CAP(*) [DOXYcycline 100MG CAP(*)] 100 mg PO BID #10 cap predniSONE [Prednisone 20 MG TAB] 20 mg PO BID #10 tablet Patient Education Materials: General Allergic Reaction (ED) Referrals: Shaunna Díaz MD [Primary Care Provider] - Additional Instructions: You have been given solumedrol and benadryl to decrease the reaction to the stings. You can take banaryl 25 to 50 mg before bed tonight, and as needed every 4 to 6 hours tomorrow to decrease itch and hives. Ice and cool soaks might help with swelling as well. You have a prescription for doxycycline to use should you be suspicious of a secondary infection (cellulitis)--with increasing pain and redness at any of the sites of the bites. Please follow up if you are not seeing consistent improvement in the hives and swelling over the next 48 hours, and please go to the emergency room should you have any difficulty breathing. - Billing Disposition and Condition Condition: STABLE Disposition: Home
[2018-11-13] MEDS ORDERED: methylPREDNISolone 125 MG* 2 ML VIAL IM ONE (16:40)
[2018-11-13] MEDS ORDERED: diPHENhydraMINE IV* 50 MG/ML 1 ml VIAL (BENADRYL) IM ONE (16:41)
== END 2018-11-13 17:29 | disposition home or self-care (01) ==
LOC: UCEAST 16:04
DX: T63.441A Toxic effect of venom of bees, accidental (unintentional), initial encounter (principal); Y92.017 Garden or yard in single-family (private) house as the place of occurrence of the external cause; Z86.718 Personal history of other venous thrombosis and embolism; Z88.0 Allergy status to penicillin
CPT/HCPCS: 96372; 99212; G0463; J1200; J2930

== ENCOUNTER 2019-03-27 09:44 | Emergency (ER) | payer OTHER ==
--- NOTE | 2019-03-27 10:09 | ED ---
Back Pain - HPI Summary HPI Summary: 73-year-old male with significant past medical history of blood clots who is currently on xarelto for this reason presents to the emergency department today complaining of pain after falling down 3 stairs 2 days ago. Patient states he has 7/10 back pain which is made worse with ambulation however he is able to ambulate. Patient also has a 3 cm abrasion noted to the scalp which was sustained during a fall. Patient denies changes in vision, headache, slurred speech, numbness or tingling, neck pain, hip pain. Patient denies any neurological deficits and is alert and oriented 3. Patient otherwise feels well and denies fever, chest, abdominal pain, shortness of breath, pain with urination, rash. Patient endorses recent alcohol use but denies recent recreational drug use. Family history and social history noncontributory. Patient denies loss of consciousness or amnesia. - History of Current Complaint Chief Complaint: EDHeadInjury Stated Complaint: FALL HEAD INJURY Time Seen by Provider: 03/27/19 09:54 Hx Obtained From: Patient Onset/Duration: Sudden Onset, Lasting Days Onset/Duration: Started Days Ago Timing: Constant Back Pain Location: Is Discrete @ Severity Initially: Moderate Severity Currently: Moderate Pain Intensity: 7 Pain Scale Used: 0-10 Numeric Character: Aching Aggravating Symptom(s): Movement, Lifting, Bending Alleviating Symptom(s): Rest, Position Associated Signs And Symptoms: Negative: Swelling, Redness, Bruising, Fever, Weakness, Flank Pain, Pain with Weight Bearing - Allergies/Home Medications Allergies/Adverse Reactions: Allergies Allergy/AdvReac Type Severity Reaction Status Date / Time Penicillins Allergy Hives Verified 11/13/18 16:20 PMH/Surg Hx/FS Hx/Imm Hx Endocrine/Hematology History: Denies: Hx Diabetes, Hx Thyroid Disease Cardiovascular History: Reports: Other Cardiovascular Problems/Disorders - slight irregularity in heart beat, pt not sure Denies: Hx Hypertension, Hx Pacemaker/ICD Respiratory History: Reports: Hx Sleep Apnea - states he has breathing irregulalrities while sleeping, soft then hard Denies: Hx Asthma, Hx Chronic Obstructive Pulmonary Disease (COPD), Other Respiratory Problems/Disorders GI History: Reports: Hx Ulcer - duodenal ulcer while in college, Other GI Disorders - heart burn on occasion History: Reports: Other Problems/Disorders - Enlarged prostate, on medications Denies: Hx Kidney Stones - uric acid crystals in his bladder, Hx Renal Disease Musculoskeletal History: Reports: Hx Arthritis - Right knee, Other Musculoskeletal History - Right knee pain effusion, right quadriceps Sensory History: Reports: Hx Contacts or Glasses - Glasses, 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 DIVERTICULITIS AN INFANT. right leg torn tendon surgery june 2017 Hx Anesthesia Reactions: No Infectious Disease History: No Infectious Disease History: Reports: History Other Infectious Disease - Lyme disease. Denies: Hx Hepatitis, Hx Human Immunodeficiency Virus (HIV), Traveled Outside the in Last 30 Days - Family History Known Family History: Positive: Other - FHx: arthritis Negative: Cardiac Disease, Hypertension, Blood Disorder - Social History Alcohol Use: Daily Alcohol Amount: 2 DRINKS/DAY Substance Use Type: Reports: None Smoking Status (MU): Never Smoked Tobacco Review of Systems Constitutional: Negative Eyes: Negative ENT: Negative Cardiovascular: Negative Respiratory: Negative Gastrointestinal: Negative Genitourinary: Negative Positive: Arthralgia, Myalgia, Decreased ROM Positive: Other - scalp laceration Neurological: Negative Psychological: Normal All Other Systems Reviewed And Are Negative: Yes Physical Exam - Summary Physical Exam Summary: Patient responded appropriately in conversation and is alert and oriented 3. Neurological exam within normal limits. PERRLA. There is a laceration noted to the scalp. Patient complains of lumbar back pain which is made worse with palpation of the sacrum and paraspinal muscles of the lumbar region. Patient has full range of motion and is able to ambulate well. Triage Information Reviewed: Yes Vital Signs On Initial Exam: Initial Vitals Temp Pulse Resp BP Pulse Ox 98.2 F 80 18 134/74 92 03/27/19 09:45 03/27/19 09:45 03/27/19 09:45 03/27/19 09:45 03/27/19 09:45 Vital Signs Reviewed: Yes Appearance: Positive: Well-Appearing, No Pain Distress, Well-Nourished Skin: Positive: Warm, Skin Color Reflects Adequate Perfusion Eyes: Positive: EOMI, ISIAH ENT: Positive: Hearing grossly normal Respiratory/Lung Sounds: Positive: Clear to Auscultation, Breath Sounds Present Cardiovascular: Positive: RRR, S1, S2 Abdomen Description: Positive: Nontender, Soft. Negative: Distended, Guarding Bowel Sounds: Positive: Present Musculoskeletal: Positive: Strength/ROM Intact Neurological: Positive: Sensory/Motor Intact, Alert, Oriented to Person Place, Time, Normal Gait, Speech Normal Psychiatric: Positive: Normal AVPU Assessment: Alert Procedures - Sedation Patient Received Moderate/Deep Sedation with Procedure: No Diagnostics - Vital Signs Vital Signs Temp Pulse Resp BP Pulse Ox 03/27/19 09:45 98.2 F 80 18 134/74 92 - Laboratory Lab Statement: Any lab studies that have been ordered have been reviewed, and results considered in the medical decision making process. Back Pain Course/Dx - Course Course Of Treatment: Patient was evaluated in the emergency department today for back pain after fall. Patient was seen and examined vitals are stable and he is afebrile. Abrasion scalp showed no need for repair and bleeding had stopped prior to arrival. CT imaging showed no evidence of acute fracture or intracranial hemorrhage. Lumbar back pain is likely due to lumbar muscle strain patient will be treated with Flexeril and Tylenol. Patient is to follow- up with his primary care provider in 5 days for further evaluation and management. Patient is to discuss incidental findings of 6 mm calcification and urinary bladder as well as diverticulosis with his primary care physician. - Diagnoses Differential Diagnosis/HQI/PQRI: Positive: Cauda Equina Syndrome, Compressive Cord Syndrome, Fracture, Herniated Disc, Strain, Sprain Provider Diagnoses: Fall, Abrasion of head Discharge ED - Sign-Out/Discharge Documenting (check all that apply): Patient Departure - Discharge Plan Condition: Stable Disposition: HOME Prescriptions: Cyclobenzaprine TAB* [Flexeril 10 MG TAB*] 10 mg PO BID PRN #12 tab PRN Reason: Pain - Moderate Patient Education Materials: Low Back Strain (ED) Referrals: Shaunna Díaz MD [Primary Care Provider] - 5 Days Additional Instructions: You were seen in the emergency department today for back pain. Please follow up with your primary care physician in 5 days for further evaluation and management of your injury. Please take for your symptoms: * Tylenol (Anti Inflammatory) * Flexeril 10mg every 6 hours as needed for pain. (Muscle relaxant) Most people with an episode of low back pain do not have a serious medical problem, and can try simple treatments such as: Staying active The best thing you can do is to stay as active as possible. People with low back pain recover faster if they stay active. If your pain is severe, you might need to rest for a day or 2. But it's important to get back to walking and moving as soon as possible. While you should avoid heavy lifting and sports while your back hurts, try to keep doing your normal daily activities. Heat Some people find that it helps to use a heating pad or heated wrap. Be careful to avoid high heat settings to prevent skin parrish. Spinal manipulation This is when a chiropractor, physical therapist, or other professional moves or "adjusts" the joints of your back. If you want to try this, talk to your doctor or nurse first. Acupuncture This is when someone who knows traditional [place] medicine inserts tiny needles into your body to block pain signals. Massage While back pain usually goes away within a few weeks, some people do continue to have pain for longer. In this case, additional treatments might include: Self care This involves being aware of your pain. While you should rest when you need to, it's important to stay active as much as you can. Things like applying heat and doing gentle stretches can help you feel better, too. Physical therapy A physical therapist is an exercise expert who can teach you stretches and movements to help strengthen your muscles. The goal is to relieve pain but also help you get back to your normal activities. Exercises you can try include walking, swimming, or using an exercise bike. Some people also find that Yuniel Chi or yoga can help with their back pain. Finding activities you enjoy can help you stay active. Reducing stress Some people find that it helps to try something called "mindfulness-based stress reduction." This involves going to a group program to practice relaxation and meditation. If your back pain is making you feel anxious or depressed, talk to your doctor or nurse. There are other treatments that can help with these problems. Only a small number of people end up needing surgery to treat back pain. Please continue taking your xarelto as instructed. Follow-up with your primary care physician for incidental findings noted during your visit today in regards to 6 mm calcification in the urinary bladder as well as evidence of diverticulosis in the distal colon. - Santosing Disposition and Condition Condition: STABLE Disposition: Home - Attestation Statements Provider Attestation: I was available for consultation for this patient. I did not evaluate the patient or participate in any medical decision making or disposition decisions unless I am specifically named in the chart as having consulted on the patient. If I have consulted on the patient, please see my own ED note on the patient encounter. Dontae Ellington MD
[2019-03-27] MEDS ORDERED: Cyclobenzaprine TAB* 10 MG PO ONE (12:01)
[2019-03-27 12:10] VITALS: BP 107/67
== END 2019-03-27 12:49 | disposition home or self-care (01) ==
LOC: ED 09:44
DX: S00.91XA Abrasion of unspecified part of head, initial encounter (principal); W10.9XXA Fall (on) (from) unspecified stairs and steps, initial encounter; Y92.9 Unspecified place or not applicable; N40.0 Benign prostatic hyperplasia without lower urinary tract symptoms; Z86.718 Personal history of other venous thrombosis and embolism; Z79.01 Long term (current) use of anticoagulants; Z79.899 Other long term (current) drug therapy; Z88.0 Allergy status to penicillin
CPT/HCPCS: 70450; 72131; 99282; A9270-GY

== ENCOUNTER 2023-12-27 13:16 | Inpatient (IN) ==
[2023-12-27 14:30] LABS: ABS Basophils 0.1 10^3/uL (0.0-0.1); ABS Eosinophils 0.3 10^3/uL (0.0-0.5); ABS Lymphocytes 2.1 10^3/uL (1.0-4.8); ABS Monocytes 1.1 10^3/uL (0.0-1.1); ABS Neutrophils 4.9 10^3/uL (1.5-7.6); ABS Nucleated RBC 0.01 10^3/ul; Eosinophil % 3.1 %; Hematocrit 45.2 % (38-53); Hemoglobin 15.7 g/dL (13.2-16.3); Mean Corpuscular Hemoglobin 31.5 pg (27-33); Mean Corpuscular Hgb Conc 34.8 g/dL (31-36); Mean Corpuscular Volume 90.3 fL (80-97); Mean Platelet Volume 8.2 fL (7.5-11.2); Nucleated Red Blood Cells % 0.1 %/100WBC (0.0-0.8); Platelet Count 304 10^3/uL (150-450); Red Blood Count 5.01 10^6/uL (4.06-5.63); Red Cell Distribution Width 13.5 % (12-17); White Blood Count 8.4 10^3/uL (3.6-10.2)
[2023-12-27 15:03] LABS: Albumin 3.5 g/dL (3.2-5.2); Albumin/Globulin Ratio 1.5 (1-3); C Reactive Protein 50.07 mg/L (<8.01); Calcium 8.9 mg/dL (8.6-10.3); Creatinine, Serum 0.63 mg/dL (0.67-1.17); Globulin 2.3 g/dL (2-4); Potassium 4.1 mmol/L (3.5-5.0); Total Bilirubin 0.7 mg/dL (0.2-1.0); Total Protein 5.8 g/dL (6.4-8.9); eGFR CKD-EPI 98.6 (>60)
[2023-12-27] MEDS: Ondansetron 4 mg VIAL 2 MG/ML 2 ml VIAL IV ONE (16:17)
[2023-12-28 06:52] LABS: ABS Basophils 0.1 10^3/uL (0.0-0.1); ABS Eosinophils 0.3 10^3/uL (0.0-0.5); ABS Lymphocytes 1.5 10^3/uL (1.0-4.8); ABS Monocytes 0.9 10^3/uL (0.0-1.1); ABS Neutrophils 4.7 10^3/uL (1.5-7.6); Eosinophil % 3.9 %; Hematocrit 42.2 % (38-53); Hemoglobin 14.5 g/dL (13.2-16.3); Mean Corpuscular Hemoglobin 31.2 pg (27-33); Mean Corpuscular Hgb Conc 34.4 g/dL (31-36); Mean Corpuscular Volume 90.6 fL (80-97); Nucleated Red Blood Cells % 0.1 %/100WBC (0.0-0.8); Platelet Count 294 10^3/uL (150-450); Red Blood Count 4.66 10^6/uL (4.06-5.63); Red Cell Distribution Width 13.4 % (12-17); White Blood Count 7.4 10^3/uL (3.6-10.2)
[2023-12-28 07:14] LABS: INR 1.04 (0.85-1.14)
[2023-12-28 07:30] LABS: Albumin 3.3 g/dL (3.2-5.2); Albumin/Globulin Ratio 1.7 (1-3); Calcium 8.5 mg/dL (8.6-10.3); Creatinine, Serum 0.63 mg/dL (0.67-1.17); Potassium 4.3 mmol/L (3.5-5.0); Total Bilirubin 0.7 mg/dL (0.2-1.0); Total Protein 5.3 g/dL (6.4-8.9); eGFR CKD-EPI 98.6 (>60)
[2023-12-28] MEDS ORDERED: Senna TAB 8.6 mg TAB PO PRN ×2 (07:39→20:43)
[2023-12-28] MEDS ORDERED: Polyethylene Glycol 3350 17 GM PACKET PO PRN ×2 (07:39→20:43)
[2023-12-28] MEDS ORDERED: Magnesium Hydroxide LIQ 30 ML UDC PO PRN ×2 (07:39→20:43)
[2023-12-28] MEDS: Morphine 2 MG/ML SYRINGE IV PRN (08:58)
[2023-12-28 10:25] LABS: Hepatitis B Surface Antigen Nonreactive (Nonreactive)
[2023-12-28 10:30] LABS: Hepatitis A Ab IgM Negative (Negative); Hepatitis B Core IgM Nonreactive (Nonreactive)
[2023-12-28 10:42] LABS: Hepatitis B Surface Ab Not Immune (Immune); Hepatitis C Antibody Negative (Negative)
[2023-12-28 13:00] LABS: Urine Appearance Clear; Urine Bilirubin Negative (Negative); Urine Blood Trace (Negative); Urine Color Yellow; Urine Glucose Negative (Negative); Urine Ketones Negative (Negative); Urine Nitrite Negative (Negative); Urine Protein Trace (Negative); Urine Urobilinogen Negative (Negative); Urine pH 5.5 (5.0-8.0)
[2023-12-28] MEDS ORDERED: Rocuronium 50 mg VIAL 10 mg/ml 5 ml VIAL (50 mg) ONE (13:37)
[2023-12-28] MEDS ORDERED: Lidocaine 1% w EPI 1:200,000 SDV 30 ML VIAL ONE (13:38)
[2023-12-28] MEDS ORDERED: Lidocaine 2% PF 5 ML VIAL ONE (13:39)
[2023-12-28] MEDS ORDERED: Dexamethasone IV 4 MG/ML VIAL 1 ml VIAL ONE (13:39)
[2023-12-28] MEDS ORDERED: fentaNYL 250 mcg/5 ml 50 MCG/ML 5 ml VIAL (250 MCG) ONE (13:39)
[2023-12-28] MEDS ORDERED: KETAMINE HCL 10 MG/ML 20 ml VIAL (200 MG) ONE (13:39)
[2023-12-28] MEDS ORDERED: Propofol 10 MG/ML 20 ML BTL ONE (13:39)
[2023-12-28] MEDS ORDERED: Ondansetron 4 mg VIAL 2 MG/ML 2 ml VIAL ONE (13:39)
[2023-12-28] MEDS ORDERED: Midazolam 2 mg/2 ml VIAL 1 mg/ml 2 ml VIAL (2 mg) ONE ×2 (13:39→15:42)
[2023-12-28] MEDS ORDERED: Vancomycin 1,000 MG VIAL ONE (13:48)
[2023-12-28] MEDS: D5LR 1000 ml BAG 1,000 ML IV SCH (14:21)
[2023-12-28] MEDS ORDERED: ceFAZolin 2 GM PREMIX 2 GM/50 ML BAG ONE (15:19)
[2023-12-28] MEDS ORDERED: Acetaminophen IV 1 GM/100ML 1,000 MG/100 ML BAG IV ONE (16:20)
[2023-12-28] MEDS ORDERED: fentaNYL 100 mcg/2 ml 50 MCG/ML VIAL IV PRN (18:31)
[2023-12-28] MEDS ORDERED: Naloxone 0.4 mg VIAL 0.4 mg/ml 1 ml VIAL IV PRN (18:31)
[2023-12-28] MEDS ORDERED: Metoclopramide 5 MG/ML VIAL (10 mg) IV PRN (18:31)
[2023-12-28] MEDS ORDERED: Ondansetron 4 mg VIAL 2 MG/ML 2 ml VIAL IV PRN (18:31)
[2023-12-28] MEDS ORDERED: fentaNYL 100 mcg/2 ml 50 MCG/ML VIAL ONE (18:36)
[2023-12-28 18:39] LABS: Hematocrit 42.9 % (38-53); Hemoglobin 14.2 g/dL (13.2-16.3)
[2023-12-28] MEDS ORDERED: NS 0.45% 1000 ml BAG 1,000 ML IV SCH (19:00)
[2023-12-28] MEDS ORDERED: Morphine 2 MG/ML SYRINGE IV PRN (20:43)
[2023-12-28] MEDS: Acetaminophen IV 1 GM/100ML 1,000 MG/100 ML BAG IV ONE (20:53)
[2023-12-28] MEDS: Scopolamine 1 mg/72hr PATCH TRANSDERM ONE (20:54)
[2023-12-28] MEDS: Buffered Lidocaine 1% SYRIN 1 ml INTRADERM ONE (20:54)
[2023-12-28] MEDS: Lactated Ringers 1000 ml BAG 1,000 ML IV SCH ×2 (21:30→22:00)
[2023-12-28] MEDS ORDERED: Calcium Carb (TUMS) 500 mg CHEW TAB PO PRN (21:58)
[2023-12-28] MEDS: Magnesium Hydroxide LIQ 30 ML UDC PO SCH (22:46)
[2023-12-28] MEDS: Latanoprost 0.005% 2.5 ml BTL BOTH EYES SCH (22:46)
[2023-12-29] MEDS: ceFAZolin 2 GM PREMIX 2 GM/50 ML BAG IVPB SCH (01:03)
[2023-12-29] MEDS: Cholecalciferol (VIT D3) 1,000 unit TAB PO SCH (08:43)
[2023-12-29 09:51] LABS: Hematocrit 36.7 % (38-53); Hemoglobin 12.3 g/dL (13.2-16.3); Mean Corpuscular Hemoglobin 30.6 pg (27-33); Mean Corpuscular Hgb Conc 33.5 g/dL (31-36); Mean Corpuscular Volume 91.1 fL (80-97); Mean Platelet Volume 8.5 fL (7.5-11.2); Platelet Count 300 10^3/uL (150-450); Red Blood Count 4.03 10^6/uL (4.06-5.63); White Blood Count 11.2 10^3/uL (3.6-10.2)
[2023-12-29 10:05] LABS: Calcium 8.4 mg/dL (8.6-10.3); Creatinine, Serum 0.71 mg/dL (0.67-1.17); Potassium 4.4 mmol/L (3.5-5.0); eGFR CKD-EPI 95.1 (>60)
[2023-12-30 07:26] LABS: ABS Basophils 0.1 10^3/uL (0.0-0.1); ABS Eosinophils 0.2 10^3/uL (0.0-0.5); ABS Lymphocytes 1.8 10^3/uL (1.0-4.8); ABS Monocytes 1.2 10^3/uL (0.0-1.1); ABS Neutrophils 6.5 10^3/uL (1.5-7.6); Eosinophil % 1.9 %; Hematocrit 36.9 % (38-53); Hemoglobin 12.6 g/dL (13.2-16.3); Lymphocyte % 18.7 %; Mean Corpuscular Hemoglobin 30.9 pg (27-33); Mean Corpuscular Volume 90.8 fL (80-97); Mean Platelet Volume 8.9 fL (7.5-11.2); Platelet Count 301 10^3/uL (150-450); Red Blood Count 4.07 10^6/uL (4.06-5.63); Red Cell Distribution Width 12.9 % (12-17); White Blood Count 9.9 10^3/uL (3.6-10.2)
[2023-12-30 09:47] LABS: Albumin 3.2 g/dL (3.2-5.2); Albumin/Globulin Ratio 1.5 (1-3); Calcium 8.6 mg/dL (8.6-10.3); Creatinine, Serum 0.73 mg/dL (0.67-1.17); Direct Bilirubin 0.2 mg/dL (0.03-0.18); Globulin 2.2 g/dL (2-4); Indirect Bilirubin 0.6 mg/dL (0.3-1.0); Total Bilirubin 0.8 mg/dL (0.2-1.0); Total Protein 5.4 g/dL (6.4-8.9); eGFR CKD-EPI 94.3 (>60)
[2023-12-30] MEDS: Senna TAB 8.6 mg TAB PO SCH (19:32)
[2023-12-31 06:37] LABS: Hemoglobin 12.6 g/dL (13.2-16.3); Mean Platelet Volume 8.7 fL (7.5-11.2); Platelet Count 311 10^3/uL (150-450)
[2023-12-31] MEDS: Polyethylene Glycol 3350 17 GM PACKET PO SCH (09:47)
[2024-01-01 05:57] LABS: Hematocrit 33.9 % (38-53); Hemoglobin 11.4 g/dL (13.2-16.3)
[2024-01-01 07:51] LABS: ABS Basophils 0.1 10^3/uL (0.0-0.1); ABS Eosinophils 0.4 10^3/uL (0.0-0.5); ABS Lymphocytes 1.8 10^3/uL (1.0-4.8); ABS Neutrophils 6.1 10^3/uL (1.5-7.6); Eosinophil % 4.1 %; Lymphocyte % 19.3 %; Mean Corpuscular Hemoglobin 31.3 pg (27-33); Mean Corpuscular Hgb Conc 34.5 g/dL (31-36); Mean Corpuscular Volume 90.8 fL (80-97); Mean Platelet Volume 8.6 fL (7.5-11.2); Platelet Count 354 10^3/uL (150-450); Red Cell Distribution Width 13.5 % (12-17); White Blood Count 9.4 10^3/uL (3.6-10.2)
[2024-01-01 10:06] VITALS: BP 116/56
[2024-01-01 11:44] LABS: Rapid COVID-19 Molecular Undetected (Undetected)
== END 2024-01-01 13:14 | DRG 522 ==
LOC: EDHOLD 13:16 → ED 13:16 → SSU 12-28 07:28
PROVIDERS: ADMIT Internal Medicine; ATTEND Internal Medicine

== ENCOUNTER 2024-01-15 12:09 | Inpatient (IN) ==
[2024-01-15 16:25] LABS: ABS Basophils 0.1 10^3/uL (0.0-0.1); ABS Eosinophils 0.1 10^3/uL (0.0-0.5); ABS Lymphocytes 1.3 10^3/uL (1.0-4.8); ABS Monocytes 1.2 10^3/uL (0.0-1.1); ABS Neutrophils 9.2 10^3/uL (1.5-7.6); ABS Nucleated RBC 0.01 10^3/ul; Hematocrit 39.4 % (38-53); Mean Corpuscular Hemoglobin 30.2 pg (27-33); Mean Corpuscular Hgb Conc 33.1 g/dL (31-36); Mean Corpuscular Volume 91.2 fL (80-97); Nucleated Red Blood Cells % 0.1 %/100WBC (0.0-0.8); Platelet Count 324 10^3/uL (150-450); Red Blood Count 4.32 10^6/uL (4.06-5.63); Red Cell Distribution Width 13.3 % (12-17); White Blood Count 11.9 10^3/uL (3.6-10.2)
[2024-01-15 16:29] LABS: ALT 17 U/L (7-52); Albumin 3.5 g/dL (3.2-5.2); Albumin/Globulin Ratio 1.5 (1-3); Alkaline Phosphatase 119 U/L (35-149); Anion Gap 8 mmol/L (2-16); Blood Urea Nitrogen 9 mg/dL (6-24); C Reactive Protein 93.44 mg/L (<8.01); CO2 Carbon Dioxide 22 mmol/L (22-32); Calcium 8.5 mg/dL (8.6-10.3); Chloride 98 mmol/L (101-111); Globulin 2.4 g/dL (2-4); Glucose 138 mg/dL (70-100); Sodium 128 mmol/L (135-145); Total Bilirubin 0.9 mg/dL (0.2-1.0); Total Protein 5.9 g/dL (6.4-8.9); eGFR CKD-EPI 95.5 (>60)
[2024-01-15] MEDS ORDERED: Calcium Carb (TUMS) 500 mg CHEW TAB PO PRN (16:29)
[2024-01-15] MEDS: ceFAZolin 2 GM PREMIX 2 GM/50 ML BAG IV ONE (17:13)
[2024-01-15] MEDS: Lactated Ringers 1000 ml BAG 1,000 ML IV ONE (17:14)
[2024-01-15 17:29] LABS: Osmolality Serum 272 mOsm/kg (275-295)
[2024-01-15] MEDS ORDERED: Magnesium Hydroxide LIQ 30 ML UDC PO PRN (17:30)
[2024-01-15 17:38] LABS: Erythrocyte Sed Rate 26 mm/Hr (0-19)
[2024-01-15] MEDS: Vancomycin 1,250 MG in NS 0.9% 250 ml 250 ML IVPB ONE (18:08)
[2024-01-15] MEDS: NS 0.9% 1000 ml BAG 1,000 ML IV ONE (18:09)
[2024-01-15 18:32] LABS: Potassium Redraw 4.4 mmol/L (3.5-5.0)
[2024-01-15] MEDS: NS 0.9% 1000 ml BAG 1,000 ML IV SCH (20:48)
[2024-01-15] MEDS: cefTRIAXone 2 gm/50 mL D5W 2 GM/50 ML BAG IV SCH (20:50)
[2024-01-15] MEDS ORDERED: Vancomycin per Pharmacy 1 EA NOTE FOLLOW UP SCH (21:00)
[2024-01-15] MEDS: Latanoprost 0.005% 2.5 ml BTL BOTH EYES SCH (21:16)
[2024-01-16] MEDS: Vancomycin 750 MG in NS 0.9% 250 ML IVPB SCH (02:10)
[2024-01-16 07:00] LABS: INR 1.3 (0.85-1.14)
[2024-01-16 07:07] LABS: Calcium 8.3 mg/dL (8.6-10.3); Creatinine, Serum 0.6 mg/dL (0.67-1.17); Magnesium 1.9 mg/dL (1.9-2.7); Potassium 4.3 mmol/L (3.5-5.0)
[2024-01-16 07:19] LABS: ABS Basophils 0.1 10^3/uL (0.0-0.1); ABS Eosinophils 0.2 10^3/uL (0.0-0.5); ABS Lymphocytes 1.7 10^3/uL (1.0-4.8); ABS Monocytes 1.4 10^3/uL (0.0-1.1); ABS Nucleated RBC 0.01 10^3/ul; Eosinophil % 1.8 %; Hematocrit 35.3 % (38-53); Hemoglobin 12.1 g/dL (13.2-16.3); Lymphocyte % 17.9 %; Mean Corpuscular Hgb Conc 34.2 g/dL (31-36); Mean Corpuscular Volume 90.6 fL (80-97); Nucleated Red Blood Cells % 0.1 %/100WBC (0.0-0.8); Platelet Count 239 10^3/uL (150-450); Red Cell Distribution Width 13.3 % (12-17); White Blood Count 9.3 10^3/uL (3.6-10.2)
[2024-01-16] MEDS: Polyethylene Glycol 3350 17 GM PACKET PO SCH (09:04)
[2024-01-16 17:23] LABS: C Reactive Protein 142.49 mg/L (<8.01)
[2024-01-16] MEDS ORDERED: Ondansetron 4 mg VIAL 2 MG/ML 2 ml VIAL IV PRN (19:54)
[2024-01-16] MEDS ORDERED: Metoclopramide 5 MG/ML VIAL (10 mg) IV PRN (19:54)
[2024-01-16] MEDS ORDERED: Naloxone 0.4 mg VIAL 0.4 mg/ml 1 ml VIAL IV PRN (19:54)
[2024-01-16] MEDS ORDERED: fentaNYL 100 mcg/2 ml 50 MCG/ML VIAL IV PRN (19:54)
[2024-01-16] MEDS ORDERED: NS 0.45% 1000 ml BAG 1,000 ML IV SCH (20:00)
[2024-01-17] MEDS: Vancomycin 1,500 MG in NS 0.9% 250 ml 250 ML IVPB SCH ×2 (01:17→17:41)
[2024-01-17] MEDS ORDERED: Lidocaine 1% w EPI 1:200,000 SDV 30 ML VIAL ONE (07:36)
[2024-01-17] MEDS ORDERED: Propofol 10 MG/ML 20 ML BTL ONE (07:42)
[2024-01-17] MEDS ORDERED: fentaNYL 100 mcg/2 ml 50 MCG/ML VIAL ONE (07:42)
[2024-01-17] MEDS ORDERED: Midazolam 2 mg/2 ml VIAL 1 mg/ml 2 ml VIAL (2 mg) ONE (07:42)
[2024-01-17] MEDS ORDERED: Lidocaine 2% PF 5 ML VIAL ONE (07:42)
[2024-01-17] MEDS ORDERED: Rocuronium 50 mg VIAL 10 mg/ml 5 ml VIAL (50 mg) ONE (07:43)
[2024-01-17 07:50] LABS: INR 1.19 (0.85-1.14)
[2024-01-17] MEDS: Scopolamine 1 mg/72hr PATCH TRANSDERM ONE (07:50)
[2024-01-17] MEDS: Acetaminophen IV 1 GM/100ML 1,000 MG/100 ML BAG IV ONE (07:50)
[2024-01-17] MEDS: Vancomycin Trough Check NOTE FOLLOW UP ONE (07:50)
[2024-01-17] MEDS: Buffered Lidocaine 1% SYRIN 1 ml INTRADERM ONE (07:50)
[2024-01-17] MEDS: Lactated Ringers 1000 ml BAG 1,000 ML IV SCH (07:51)
[2024-01-17] MEDS ORDERED: Sevoflurane BOTTLE ONE (07:52)
[2024-01-17 07:58] LABS: Calcium 8.5 mg/dL (8.6-10.3); Creatinine, Serum 0.58 mg/dL (0.67-1.17); Magnesium 1.8 mg/dL (1.9-2.7); Potassium 4.2 mmol/L (3.5-5.0); eGFR CKD-EPI 101.1 (>60)
[2024-01-17] MEDS ORDERED: Magnesium Sulfate IV 0.5 GM/ML 2 ml VIAL (1 gm) ONE (08:13)
[2024-01-17] MEDS ORDERED: Calcium CHLORIDE 10% SYRINGE 1 GM/10 ML ONE (08:13)
[2024-01-17] MEDS ORDERED: ceFAZolin 2 GM PREMIX 2 GM/50 ML BAG ONE (08:44)
[2024-01-17 08:48] LABS: ABS Basophils 0.1 10^3/uL (0.0-0.1); ABS Eosinophils 0.4 10^3/uL (0.0-0.5); ABS Lymphocytes 2.1 10^3/uL (1.0-4.8); ABS Monocytes 1.1 10^3/uL (0.0-1.1); Eosinophil % 4.1 %; Hematocrit 34.8 % (38-53); Hemoglobin 11.9 g/dL (13.2-16.3); Lymphocyte % 24.3 %; Mean Corpuscular Hemoglobin 30.8 pg (27-33); Mean Corpuscular Hgb Conc 34.1 g/dL (31-36); Mean Corpuscular Volume 90.4 fL (80-97); Mean Platelet Volume 8.3 fL (7.5-11.2); Platelet Count 271 10^3/uL (150-450); Red Blood Count 3.85 10^6/uL (4.06-5.63); Red Cell Distribution Width 13.4 % (12-17); White Blood Count 8.7 10^3/uL (3.6-10.2)
[2024-01-17] MEDS ORDERED: Dexamethasone IV 4 MG/ML VIAL 1 ml VIAL ONE (10:25)
[2024-01-17] MEDS ORDERED: Ondansetron 4 mg VIAL 2 MG/ML 2 ml VIAL ONE (10:25)
[2024-01-17] MEDS ORDERED: HYDROmorphone 0.5 MG/0.5 ML SYRINGE ONE (10:49)
[2024-01-17] MEDS ORDERED: Vancomycin 1,000 MG VIAL ONE (11:05)
[2024-01-17 14:06] LABS: C Reactive Protein 117.89 mg/L (<8.01)
[2024-01-17] MEDS: Magnesium Sulfate 2 gm BAG 2 GM/50 ML BAG IVPB ONE (21:24)
[2024-01-18 06:10] LABS: ABS Lymphocytes 1.6 10^3/uL (1.0-4.8); ABS Monocytes 0.9 10^3/uL (0.0-1.1); ABS Neutrophils 6.1 10^3/uL (1.5-7.6); Hematocrit 31.8 % (38-53); Hemoglobin 10.6 g/dL (13.2-16.3); Lymphocyte % 18.6 %; Mean Corpuscular Hemoglobin 30.2 pg (27-33); Mean Corpuscular Hgb Conc 33.4 g/dL (31-36); Mean Corpuscular Volume 90.6 fL (80-97); Mean Platelet Volume 8.1 fL (7.5-11.2); Platelet Count 272 10^3/uL (150-450); Red Blood Count 3.51 10^6/uL (4.06-5.63); Red Cell Distribution Width 13.3 % (12-17); White Blood Count 8.6 10^3/uL (3.6-10.2)
[2024-01-18 06:42] LABS: Calcium 8.3 mg/dL (8.6-10.3); Creatinine, Serum 0.66 mg/dL (0.67-1.17); Magnesium 2.1 mg/dL (1.9-2.7); Potassium 4.5 mmol/L (3.5-5.0); eGFR CKD-EPI 97.2 (>60)
[2024-01-18 08:33] LABS: C Reactive Protein 79.33 mg/L (<8.01)
[2024-01-18] MEDS: Enoxaparin 40 MG/0.4 ML SYR SUBCUT SCH (16:06)
[2024-01-18] MEDS: Vancomycin Trough Check NOTE FOLLOW UP ONE (22:36)
[2024-01-19 05:22] LABS: Hematocrit 30.2 % (38-53); Hemoglobin 10.3 g/dL (13.2-16.3); Mean Corpuscular Hemoglobin 30.5 pg (27-33); Mean Corpuscular Hgb Conc 34.1 g/dL (31-36); Mean Corpuscular Volume 89.6 fL (80-97); Platelet Count 256 10^3/uL (150-450); Red Blood Count 3.37 10^6/uL (4.06-5.63); Red Cell Distribution Width 13.5 % (12-17)
[2024-01-19 05:50] LABS: Albumin 2.9 g/dL (3.2-5.2); Albumin/Globulin Ratio 1.6 (1-3); C Reactive Protein 38.17 mg/L (<8.01); Calcium 7.9 mg/dL (8.6-10.3); Creatinine, Serum 0.75 mg/dL (0.67-1.17); Globulin 1.8 g/dL (2-4); Total Bilirubin 0.3 mg/dL (0.2-1.0); Total Protein 4.7 g/dL (6.4-8.9); eGFR CKD-EPI 93.5 (>60)
[2024-01-19] MEDS: cefTRIAXone 2 gm/50 mL D5W 2 GM/50 ML BAG IV SCH (16:16)
[2024-01-20 07:09] LABS: Hematocrit 30.6 % (38-53); Hemoglobin 10.4 g/dL (13.2-16.3); Mean Corpuscular Hemoglobin 30.4 pg (27-33); Mean Corpuscular Hgb Conc 33.9 g/dL (31-36); Mean Corpuscular Volume 89.7 fL (80-97); Mean Platelet Volume 8.2 fL (7.5-11.2); Platelet Count 272 10^3/uL (150-450); Red Blood Count 3.41 10^6/uL (4.06-5.63); Red Cell Distribution Width 13.4 % (12-17); White Blood Count 8.3 10^3/uL (3.6-10.2)
[2024-01-20 07:38] LABS: Albumin 2.9 g/dL (3.2-5.2); Albumin/Globulin Ratio 1.5 (1-3); C Reactive Protein 31.34 mg/L (<8.01); Calcium 8.4 mg/dL (8.6-10.3); Creatinine, Serum 0.58 mg/dL (0.67-1.17); Globulin 1.9 g/dL (2-4); Potassium 4.2 mmol/L (3.5-5.0); Total Bilirubin 0.4 mg/dL (0.2-1.0); Total Protein 4.8 g/dL (6.4-8.9); eGFR CKD-EPI 101.1 (>60)
[2024-01-20] MEDS: Vancomycin Trough Check NOTE FOLLOW UP ONE (07:55)
[2024-01-20 14:13] VITALS: BP 136/70
[2024-01-20 15:08] LABS: Rapid COVID-19 Molecular Undetected (Undetected)
== END 2024-01-20 15:00 | DRG 857 ==
LOC: EDHOLD 12:09 → ED 12:09 → OBSVTOIN 15:59 → SUATTDRO 15:59 → SSU 17:29
PROVIDERS: ADMIT Student in an Organized Health Care Education/Training Program; ATTEND Internal Medicine